=== PATIENT | male | born 2000 | race Caucasian/White ===

== ENCOUNTER → 2020-04-03 | Outpatient (CLI) | payer BC ==
--- NOTE | 2020-04-03 16:36 | Diagnostic Imaging Report ---
INDICATION: Right breast lump. TECHNIQUE: Sonographic interrogation of the area of lump in the retroareolar right breast was performed. FINDINGS: There is an ill-defined region of hypoechogenicity at the 12 o'clock retroareolar region measuring 1.9 x 1.2 x 2.3 cm. Based on the patient's age, this most likely represents an area of gynecomastia. No other abnormalities are seen. IMPRESSION: The findings are most suggestive of gynecomastia in the retroareolar right breast at the area of palpable abnormality. Continued close clinical followup is recommended to confirm clearing. If this persists, consideration could be given to performance of a diagnostic mammogram. ACR BI-RADS Category 2: Benign findings. Dictated by: Dictated on workstation # [id number]
== END ==
LOC: RAD 14:45
PROVIDERS: ATTEND Nurse Practitioner Family
DX: N63.10 Unspecified lump in the right breast, unspecified quadrant (principal)